=== PATIENT | male | born 1985 | race Caucasian/White ===

== ENCOUNTER 2018-08-17 10:48 | Emergency (ER) | payer BC, OTHER ==
[~2018-08-17] VITALS: Ht 177.8 cm; Wt 63.5 kg
[2018-08-17 10:54] VITALS: BP 147/99
[2018-08-17 11:57] LABS: Urine WBC None Seen /hpf (0 - 3)
[2018-08-17 12:22] LABS: Urine Bacteria NONE SEEN /hpf (None Seen); Urine Blood Negative /uL (Negative); Urine Specific Gravity 1.006 (1.001-1.035)
[2018-08-17 12:23] LABS: Basophils # (auto) 0.1 uL; Basophils % (auto) 1.9 % (0.0-2.0); Eosinophils # (auto) 0.1 uL; Hematocrit 47.9 % (41.0-53.0); Lymphocytes # (auto) 1.4 uL; Mean Corpuscular Hgb Conc. 35.4 g/dL (32.0-36.0); Mean Corpuscular Volume 90.5 fL (80.0-100.0); Monocytes # (auto) 0.3 uL; Monocytes % (auto) 8.9 % (0.0-12.0); Neutrophils # (auto) 1.8 uL; Neutrophils % (auto) 49.2 % (37.0-80.0); Nucleated Red Blood Cells % 0.1 %; Platelet Count (auto) 223 10^3/uL (140-450); Red Cell Distribution Width 12.7 % (11.8-14.3); White Blood Cell 3.7 10^3/uL (4.4-10.8)
[2018-08-17 12:30] LABS: Potassium 3.4 mmol/L (3.5-5.1)
[2018-08-17 12:37] LABS: Albumin 4.6 g/dL (3.4-5.0); BUN/Creatinine Ratio 12.2; Total Protein 7.9 g/dL (6.4-8.2)
[2018-08-17] MEDS ORDERED: POTASSIUM EFFERVESENT TAB 25 MEQ PO ONE (17:00)
== END 2018-08-17 17:57 | disposition home or self-care (01) ==
LOC: ER 10:48
DX: R07.89 Other chest pain (principal); Q23.1 Congenital insufficiency of aortic valve; E87.6 Hypokalemia
CPT/HCPCS: 36415; 71046; 80053; 81001; 85025; 93005